=== PATIENT | male | born 1990 | race Hispanic/Latino ===

== ENCOUNTER 2018-08-09 23:17 | Emergency (ER) | payer OTHER ==
[2018-08-09 23:31] VITALS: BP 137/77
--- NOTE | 2018-08-10 01:54 | Emergency Department Report ---
- General Chief Complaint: Wound/Laceration Stated Complaint: LACERATION TO RIGHT ARM Time Seen by Provider: 08/10/18 01:20 Source: patient Mode of arrival: Ambulatory Limitations: No Limitations - History of Present Illness Initial Comments: Patient is a 28-year-old male presents to the emergency room with complaints of a laceration to his right elbow that occurred at 8 AM this morning. He states he was at work and slipped and fell and hit a piece of metal. He denies any pain in the elbow he states it just hurts where the cut is. He states he cleaned it with hydrogen peroxide. He denies any past medical history allergies to medications. He is unsure of his last tetanus immunization. - Related Data Previous Rx's Medication Instructions Recorded Last Taken Type cephALEXin [Keflex] 500 mg PO BID 7 Days #14 cap 08/10/18 Unknown Rx Allergies Allergy/AdvReac Type Severity Reaction Status Date / Time No Known Allergies Allergy Unverified 08/10/18 02:02 ED Review of Systems ROS: Stated complaint: LACERATION TO RIGHT ARM Other details as noted in HPI Comment: All other systems reviewed and negative ED Past Medical Hx - Past Medical History Previous Medical History?: No - Surgical History Past Surgical History?: No - Social History Smoking Status: Unknown if ever smoked Substance Use Type: None - Medications Home Medications: Home Medications Medication Instructions Recorded Confirmed Last Taken Type cephALEXin [Keflex] 500 mg PO BID 7 Days #14 cap 08/10/18 Unknown Rx ED Physical Exam - General Limitations: No Limitations General appearance: alert, in no apparent distress - Head Head exam: Present: atraumatic, normocephalic - Eye Eye exam: Present: normal appearance - ENT ENT exam: Present: mucous membranes moist - Neurological Exam Neurological exam: Present: alert, oriented X3 - Psychiatric Psychiatric exam: Present: normal affect, normal mood - Skin Skin exam: Present: warm, dry, other (3 cm laceration to the right posterior elbow, no foreign body visualized, no tendon involvement, subcutaenous tissue exposed, FROM of the right elbow without difficulty, neurovascularly intact) ED Course Vital Signs 08/09/18 08/10/18 23:30 02:53 Temperature 97.8 F Pulse Rate 67 63 Respiratory 18 16 Rate Blood Pressure 137/77 O2 Sat by Pulse 98 100 Oximetry - Laceration /Wound Repair Right Elbow Wound Location: upper extremity (right elbow) Wound Length (cm): 3 Wound's Depth, Shape: superficial Wound Explored: clean Irrigated w/ Saline (ccs): 30 Betadine Prep?: Yes Anesthesia: 1% Lidocaine Volume Anesthetic (ccs): 3 Wound Repaired With: sutures Suture Size/Type: 4:0, proline Number of Sutures: 4 Layer Closure?: No Sterile Dressing Applied?: Yes Progress: laceration irrigated with saline and cleaned with betadine, sterile drapes applied, no foreign body present no tendon involvement, 3 cc of 1% lidocaine without epi used, laceration repaired with 4-0 prolene and 4 sutures placed, pt tolerated well, bleeding controlled, no complications, sterile dressing applied ED Medical Decision Making - Medical Decision Making Patient is a 28-year-old male presents to the emergency room with complaints of a laceration to his right elbow that occurred at 8 AM this morning. He states he was at work and slipped and fell and hit a piece of metal. He denies any pain in the elbow he states it just hurts where the cut is. He states he cleaned it with hydrogen peroxide. He denies any past medical history allergies to medications. He is unsure of his last tetanus immunization. on exam: 3 cm laceration to the right posterior elbow, no foreign body visualized, no tendon involvement, subcutaenous tissue exposed, FROM of the right elbow without difficulty, neurovascularly intact. according to uptodate medical literature laceration can be repaired for up to 18 hours after injury. laceration was clean. irrigated with saline and cleaned with betadine and repaired per procedure. due to a delayed repair pt was placed on keflex. pt given tetanus immunization while in the ED. advised pt to please take medication as prescribed. keep area clean and dry. Wash with soap and water and immediately dry. No hot tub, pool, bathtub or immersing in water. Sutures will need to be removed in 7-10 days. Follow up with a primary care doctor in the next 3-5 days. return to the emergency room for any new or worsening symptoms or any signs of infection. Critical care attestation.: If time is entered above; I have spent that time in minutes in the direct care of this critically ill patient, excluding procedure time. ED Disposition Clinical Impression: Laceration of right elbow Qualifiers: Encounter type: initial encounter Qualified Code(s): S51.011A - Laceration without foreign body of right elbow, initial encounter Disposition: DC-01 TO HOME OR SELFCARE Is pt being admited?: No Does the pt Need Aspirin: No Condition: Stable Instructions: Suture Care (ED), Laceration (ED) Additional Instructions: Please take medication as prescribed. keep area clean and dry. Wash with soap and water and immediately dry. No hot tub, pool, bathtub or immersing in water. Sutures will need to be removed in 7-10 days. Follow up with a primary care doctor in the next 3-5 days. return to the emergency room for any new or worsening symptoms or any signs of infection. Prescriptions: cephALEXin [Keflex] 500 mg PO BID 7 Days #14 cap Referrals: MICK BARTHOLOMEW MD [Primary Care Provider] - 3-5 Days Time of Disposition: 02:30 Print Language: SAUDI ARABIAN
[2018-08-10] MEDS ORDERED: XYLOCAINE 1% MPF 5 mL INFILTRATI ONE (01:59)
[2018-08-10] MEDS ORDERED: BOOSTRIX IM ONE (02:36)
== END 2018-08-10 02:53 | disposition home or self-care (01) ==
LOC: ED 23:17
DX: S51.011A Laceration without foreign body of right elbow, initial encounter (principal); W01.198A Fall on same level from slipping, tripping and stumbling with subsequent striking against other object, initial encounter; Y93.89 Activity, other specified; Y92.89 Other specified places as the place of occurrence of the external cause; Y99.8 Other external cause status
CPT/HCPCS: 90471; 90715; 99282